=== PATIENT | female | born 1955 | race Caucasian/White ===

== ENCOUNTER 2017-11-23 10:15 | Emergency (ER) | payer MEDICAID, OTHER, SELFPAY ==
[2017-11-23 11:25] LABS: #Basophils 0.1 thou/uL (0.0-0.2); #Eosinphils 0.2 thou/uL (0.0-0.7); #Lymphocytes 1.1 thou/uL (1.20-3.40); #Monocytes 0.5 thou/uL (0.11-0.59); #Neutrophils 5.1 thou/uL (1.40-6.50); %Basophils 1.2 % (0.0-1.0); %Eosinophils 3.5 % (0.0-10.0); %Neutrophils 72.3 % (42.0-75.0); Hemoglobin 9.6 g/dL (12.0-16.0); Mean Corpuscular HGB CONC 30.3 g/dL (32.0-36.0); Mean Corpuscular Hemoglobin 32.9 pg (27.0-31.0); Mean Platelet Volume 6.8 fL (7.4-10.4); Platelet Count 204 thou/uL (130-400); RBC Distribution Width 15.1 % (11.5-14.5); Red Blood Cell (RBC) Count 2.92 mill/uL (4.20-5.40)
[2017-11-23 11:40] LABS: Anisocytosis SLIGHT = 6-15 cells (100X) (0-5/hpf); MDiff Complete? YES; Macrocytosis SLIGHT = 6-15 cells (100X) (0-5/hpf); PLT Morphology Comment Appears Adequate; Polychromasia SLIGHT = 2-3 cells (100X) (0-2/hpf)
--- NOTE | 2017-11-23 11:49 | RAD ---
FRONTAL RADIOGRPAH CHEST: DATE: 11/23/17. COMPARISON: None. HISTORY: Short of breath. FINDINGS: Cardiac silhouette appears enlarged. No pneumothorax is seen. No large-volume pleural effusion. Th ere is pulmonary vascular prominence. There is perihilar interstitial opacity, left greater than rig ht. IMPRESSION: Prominent cardiac silhouette with pulmonary vascular congestion and interstitial opacity. Findings s uggest interstitial edema. The possibility of an interstitial inflammatory process is not excluded. Recommend followup PA and lateral imaging of the chest following treatment. POS: [facility]
[2017-11-23 11:55] LABS: ALT (SGPT) 9 U/L (8-55); AST (SGOT) 17 U/L (5-34); Albumin 3.2 g/dL (3.5-5.0); Alkaline Phosphatase 123 U/L (40-150); BUN (Urea Nitrogen) 13 mg/dL (9.8-20.1); Bilirubin, Total 0.9 mg/dL (0.2-1.2); Calc. Creatinine Clearance 0 mL/min (70-130); Calcium 8.6 mg/dL (7.8-10.44); Estimated GFR-MDRD 73; Globulin 3.7 g/dL (2.4-3.5); Glucose 131 mg/dL (70-105); Protein, Total 6.9 g/dL (6.0-8.3)
[2017-11-23 12:05] LABS: Anion Gap 16 mmol/L (10-20); Chloride 87 mmol/L (98-107); Sodium 145 mmol/L (136-145)
[2017-11-23 12:09] LABS: Carbon Dioxide 46 mmol/L (22-29)
[2017-11-23] MEDS ORDERED: Furosemide 40 MG TAB ONE (12:23)
== END 2017-11-23 15:05 ==
LOC: ERS 10:15
DX: E66.01 Morbid (severe) obesity due to excess calories (principal); D64.9 Anemia, unspecified; E03.9 Hypothyroidism, unspecified; F41.9 Anxiety disorder, unspecified; F31.9 Bipolar disorder, unspecified; K21.9 Gastro-esophageal reflux disease without esophagitis; F03.90 Unspecified dementia, unspecified severity, without behavioral disturbance, psychotic disturbance, mood disturbance, and anxiety; I11.0 Hypertensive heart disease with heart failure; I50.9 Heart failure, unspecified; Z79.899 Other long term (current) drug therapy; Z79.1 Long term (current) use of non-steroidal anti-inflammatories (NSAID)
CPT/HCPCS: 36415; 71045; 80053; 83880; 85025; 94640; 94799; J7620

== ENCOUNTER 2018-03-07 05:53 | Inpatient (IN) | payer OTHER ==
[2018-03-07] MEDS ORDERED: fentaNYL Citrate/PF 2,000 MCG in Sodium Chloride 0.9% 60 ML IV SCH ×2 (06:25→09:54)
[2018-03-07 06:28] LABS: Actual Bicarbonate (HCO3a) 32.8 mEq/L (22-28); Analyzer IN Cardio ER; Base Excess (BEa) 6.2 mEq/L (-2.0 to +3.0); Calcium, Ionized 0.94 mmol/L (1.12-1.30); Carboxyhemoglobin (COHb) 0.8 gm% (0.0-3.0); Hemoglobin (Hb) 8.7 g/dL (12.0-16.0); Potassium - ABG Lab 5.78 mmol/L (3.70-5.30); pH, Arterial 7.36 (7.35-7.45)
[2018-03-07 06:30] LABS: Puncture Site RRA
[2018-03-07 06:55] LABS: Hemoglobin 8.4 g/dL (12.0-16.0); Mean Corpuscular HGB CONC 30.3 g/dL (32.0-36.0); Mean Corpuscular Hemoglobin 32.4 pg (27.0-31.0); RBC Distribution Width 16.2 % (11.5-14.5); Red Blood Cell (RBC) Count 2.59 mill/uL (4.20-5.40)
[2018-03-07] MEDS ORDERED: Piperacillin/Tazobactam 4.5 GM VIAL ONE (06:58)
[2018-03-07 07:01] LABS: ALT (SGPT) 11 U/L (8-55); AST (SGOT) 11 U/L (5-34); Alkaline Phosphatase 92 U/L (40-150); Anion Gap 23 mmol/L (10-20); BUN (Urea Nitrogen) 71 mg/dL (9.8-20.1); Bilirubin, Total 1.1 mg/dL (0.2-1.2); CK (CPK) 12 U/L (29-168); Calc. Creatinine Clearance 0 mL/min (70-130); Calcium 7.5 mg/dL (7.8-10.44); Carbon Dioxide 30 mmol/L (23-31); Chloride 87 mmol/L (98-107); Estimated GFR-MDRD 8; Lipase 4 U/L (8-78); Sodium 134 mmol/L (136-145)
[2018-03-07 07:03] LABS: Glucose 52 mg/dL (80-115)
[2018-03-07 07:09] LABS: CKMB 0.5 ng/mL (0-6.6); Troponin I 0.055 ng/mL (< 0.028)
[2018-03-07 07:32] LABS: Mean Platelet Volume 8.1 fL (7.4-10.4); Platelet Count 93 thou/uL (130-400)
[2018-03-07 07:33] LABS: Band 43 % (5-11); Blast 1 % (0-0); Eosinophils 4 % (0-10); Lymphocytes 15 % (21-51); MDiff Complete? YES; Macrocytosis SLIGHT = 6-15 cells (100X) (0-5/hpf); Metamyelocyte 14 % (0-0); Myelocyte 16 % (0-0); Neutrophil 6 % (42-75); Reflex for Review?? YES
[2018-03-07] MEDS ORDERED: Norepinephrine 8 MG/0.9% NS 250 ML ONE (08:20)
[2018-03-07] MEDS ORDERED: Dextrose 50% Abboject 50 ML SYRINGE ONE ×2 (08:35→11:16)
--- NOTE | 2018-03-07 08:43 | RAD ---
CHEST ONE VIEW: Comparison: 03-07-18 History: Central line placement. FINDINGS: Interval placement of a right sided subclavian central venous catheter with the distal tip projecting over the expected region of the superior vena cava. No pneumothorax. Stable lung parenchymal changes , cardiomegaly, endotracheal and nasogastric tubes. IMPRESSION: Right sided central venous catheter as above. No definite pneumothorax. POS: [facility]
--- NOTE | 2018-03-07 08:44 | RAD ---
ONE VIEW CHEST: History: Hypotension. Sepsis. FINDINGS: There is an endotracheal tube and nasogastric tube appropriately positioned. Heart is enlarged. There are diffuse interstitial and alveolar opacities. No pneumothorax. IMPRESSION: Congestive heart failure. Superimposed infiltrates cannot be excluded. POS: [facility]
[2018-03-07] MEDS ORDERED: Dextrose 5 % And 0.9 % NaCl 1,000 ML IV SCH (08:45)
[2018-03-07] MEDS ORDERED: Vancomycin HCl 0.5 GM in Sodium Chloride 0.9% 250 ML 250 ML IVPB SCH (09:32)
[2018-03-07] MEDS ORDERED: Acetaminophen 650 MG Suppository PR PRN (09:32)
[2018-03-07] MEDS ORDERED: Ventilator Sedation Protocol 1 EACH FS ONE (09:32)
[2018-03-07] MEDS ORDERED: Dextrose 5% in Water 1,000 ML IV PRN (09:32)
[2018-03-07] MEDS ORDERED: Dextrose 5% in Water 1,000 ML IV SCH (09:45)
[2018-03-07] MEDS ORDERED: Propofol 1,000 MG/100 ML VIAL IV PRN (09:54)
[2018-03-07] MEDS ORDERED: Lorazepam 2 MG/ML VIAL SLOW IVP PRN (09:54)
[2018-03-07] MEDS ORDERED: Propofol BOLUS 1,000 MG/100 ML VIAL IV PRN (09:54)
[2018-03-07] MEDS ORDERED: Fentanyl BOLUS 250 ML IVPB PRN (09:54)
[2018-03-07] MEDS: Dextrose 50% Abboject 50 ML SYRINGE SLOW IVP PRN ×2 (11:18→12:36)
[2018-03-07 11:30] VITALS: BMI 102.1
[2018-03-07] MEDS ORDERED: Vancomycin HCl 1 GM in Premix Bag 1 BAG IVPB SCH (11:30)
[2018-03-07 12:10] LABS: Lactic Acid 10.6 mmol/L (0.5-2.2)
[2018-03-07] MEDS ORDERED: Albumin 5% 250 ML ONE (12:54)
--- NOTE | 2018-03-07 12:56 | HP ---
REASON FOR ADMISSION: Acute respiratory failure with hypoxia and hypercapnia, life threatening obesity, sepsis, renal failure, hyperkalemia, congestive heart failure exacerbation, demand ischemia, hypoglycemia. HISTORY OF PRESENTING ILLNESS: Please note the majority of this history is obtained by my talking to ER physician, Dr. Bonner, ER records, and fdc records from [facility] as the patient is intubated and sedated. The patient apparently was sent from fdc for hypoxia with low blood pressures. She was initially saturating 81% on room air when EMS arrived. She was placed on CPAP and the saturations promptly came up to 97% and was brought to the emergency room. She also had fingerstick glucose in the 30s and was given multiple D50s prior to bringing her to the ER. On arrival in ER, the patient had to be intubated to protect airway. She also became severely encephalopathic prior to intubation. Currently, has a #7 ET tube orally intubated. She is morbidly obese and weighs nearly 376 kilos. Initial workup in the ER revealed multiple organ failure with hyperkalemia, possible sepsis. PAST MEDICAL AND SURGICAL HISTORY: Life threatening morbid obesity, hypothyroidism, likely obesity hypoventilation syndrome, bipolar disorder, anxiety disorder, history of CHF, prior history of pneumonia per fdc records, history of unspecified dementia with behavioral disturbance per fdc records and chronic anemia. CURRENT MEDICATIONS: Per nursing records, patient is on Desyrel 50 mg daily, Synthroid 150 mcg daily, Zaroxolyn 5 mg p.o. daily, Abilify 10 mg at bedtime, multivitamin 1 tab once daily, K-Dur 20 mEq p.o. daily, ranitidine 150 mg twice a day, torsemide 100 mg twice daily, vitamin D3 2000 units at bedtime, Cymbalta 90 mg at bedtime and Colace 100 mg daily p.r.n. ALLERGIES: CIPROFLOXACIN and LEVAQUIN. PERSONAL HISTORY: Patient is a fdc resident at [facility]. It is unclear if she smokes. FAMILY HISTORY: Cannot be obtained as patient is currently intubated. CODE STATUS: I have discussed patient's code status with her brother who is next of kin per [facility] and fdc records and Scar does mention that he has been making decisions for her for the last 2 years now. The number to reach him is [phone]. He wants her to be DO NOT RESUSCITATE. The patient apparently has a son and Mr. Abbott will try to get his phone number and get in touch with him to come and see her. At present, he does not have a direct phone number to reach him. The son's name is Antonio Hill. Again, I do not have a number nor does the patient's brother have his number. REVIEW OF SYSTEMS: Cannot be obtained as the patient is intubated and is encephalopathic. PHYSICAL EXAMINATION: GENERAL: Patient is a 63-year-old morbidly obese female who is currently intubated. VITAL SIGNS: Blood pressure 90/60, pulse 70 per minute, respiratory rate 16 per minute, temperature 100.1 degrees, saturating 97% on 50% FiO2 on the ventilator, tidal volume is 500, PEEP is 5. The patient is orally intubated with ET tube #7. NECK: Supple. No obvious elevation in JVD. Again, it is very hard to elicit the same with no anatomic markings with morbid obesity. EYES: Pupils are 3 mm and sluggishly reacting to light. ORAL CAVITY: No obvious exudates seen. Has an ET tube and NG tube. CARDIOVASCULAR SYSTEM: S1, S2 heard. Regular rhythm. RESPIRATORY SYSTEM: Air entry 1+ bilaterally, rales plus bilateral, rhonchi plus no wheezes. ABDOMEN: Obese. No obvious masses felt. Bowel sounds are heard. EXTREMITIES: The patient likely has some chronic lymphedema. The patient has macerations on the skin folds at multiple levels in both her lower abdomen and thigh areas. VASCULAR SYSTEM: Peripheral pulses are 1+ in the upper extremities, barely palpable in the lower extremities. No ischemic gangrene. CENTRAL NERVOUS SYSTEM: No gross focal signs seen. NEUROLOGIC: Exam is difficult as the patient is intubated and is sedated at present. PSYCHIATRIC SYSTEM: Cannot be ascertained as the patient is intubated and encephalopathic at present. IMAGING DATA AND LABORATORY DATA: Chest x-ray done shows right-sided central venous catheter, signs of pulmonary vascular congestion, questionable infiltrates. White count of 3, hemoglobin and hematocrit 8 and 27, platelet count 93, MCV is 107 with 6% neutrophils, 43% bands, 15% neutrophils, 14% metamyelocytes and 16% myelocytes. There is 1% blasts with ABG done on arrival shows a pH of 7.36, pCO2 60, pO2 93. The patient was on ventilator with 50% FiO2 for the blood gas. Potassium 6.0. Sodium 134, chloride 87, serum bicarbonate 30, BUN 71, creatinine 5.3, serum glucose 52, lactic acid 8.9. Liver enzymes within normal limits. Troponin I 0.05. BNP is 1229, albumin is 2.0. Influenza A and B antigens are negative. EKG done show normal sinus rhythm at 65 beats per minute. There is extremely low voltage EKG, likely due to body habitus. CLINICAL IMPRESSION AND PLAN: The patient will be admitted to ICU for acute respiratory failure with hypoxia, life threatening obesity, sepsis, acute renal failure, hyperkalemia, demand ischemia, CHF exacerbation and likely very poor functional status. She will be on cefepime and vancomycin based on renal dosing. A total of 4 liters of normal saline has been given in the ER. One amp of dextrose has been given in the ER. She will also be on steroids, IV, DuoNebs. ER physician Dr. Bonner has spoken to Dr. Melgar already about the patient. I have discussed her findings with Dr. Hines for Nephrology. We will await pathology smear review in view of immature cells including metamyelocytes and myelocytes seen in the CBC. Her overall prognosis is very poor and I have discussed this with her brother, Mr. Abbott. He is trying to get hold of her son who has not been in touch with her for quite some time now per Scar. Mr. Abbott does not want resuscitation done if her heart quits, but to continue current measures that we are doing for now. He will let us know if withdrawal of care needs to be done after discussing with his other siblings and her son as we locate him. SLY
[2018-03-07] MEDS: Cefepime 1 GM in Sodium Chloride 0.9% 100 ML IVPB SCH (13:11)
[2018-03-07] MEDS ORDERED: Dextrose 10% in Water 1,000 ML IV SCH (13:30)
[2018-03-07] MEDS: Vasopressin 40 UNIT, Admixture Fee 1 EACH in Sodium Chloride 0.9% 100 ML IV SCH (13:42)
[2018-03-07 14:38] LABS: Anion Gap 22 mmol/L (10-20); BUN (Urea Nitrogen) 66 mg/dL (9.8-20.1); Calc. Creatinine Clearance 51 mL/min (70-130); Calcium 7.2 mg/dL (7.8-10.44); Carbon Dioxide 28 mmol/L (23-31); Chloride 91 mmol/L (98-107); Estimated GFR-MDRD 9; Potassium 5.6 mmol/L (3.5-5.1); Sodium 135 mmol/L (136-145)
[2018-03-07 14:47] LABS: Glucose 52 mg/dL (80-115)
[2018-03-07] MEDS ORDERED: STERILE WATER IV SCH ×2 (16:45→17:15)
[2018-03-07] MEDS ORDERED: DEXTROSE 70% IV SCH ×2 (16:45→17:15)
[2018-03-07] MEDS ORDERED: WATER IV SCH ×2 (16:45→17:15)
[2018-03-07] MEDS ORDERED: Sterile Water Injection 714 ML in Dextrose 70% in Water 286 ML IV SCH (17:15)
[2018-03-07] MEDS: Heparin 5,000 UNITS/ML VIAL SC SCH ×2 (17:44→21:19)
[2018-03-07] MEDS: Hydrocortisone Sod Succ/PF 100 mg/2 ml Vial IVP SCH ×2 (17:46→23:43)
--- NOTE | 2018-03-07 17:59 | CON ---
DATE OF CONSULTATION: 03/07/2018 HISTORY OF PRESENT ILLNESS: Edda Hill is a 63-year-old morbidly obese female from [employer] [facility]. She apparently weighs over 362 kilograms, presented with difficulty breathing. Initial x-ray showed bilateral pneumonia, left greater than right. She was intubated by the ER doctor and transferred her e for ongoing care. According to her brother who is in [place] who has the power of ip technology transactions attorney has made her DNR. She has no quality of life. She has been in the custodial now for almost 8 years, but after that she was ma rginally living at home where she could barely walk. She was involved in an accident that precipitat ed worsening of her overall medical problem and was transferred there. She is unable to walk even in the custodial. Apparently did get her food at the bedside. She is presently intubated on the vent. PAST MEDICAL HISTORY: Pertinent for previous medical records, pertinent for apparently congestive he art failure; hypothyroidism; reflux; hypertension; dementia; obesity, morbid; apparently bipolar diso rder; depression. PREVIOUS SURGERIES: At this stage, unknown. SOCIAL HISTORY: Tobacco, none. Alcohol, none. REVIEW OF SYSTEMS: Unremarkable. Apparently, she has a son as per the brother who lives in [place], v thang unlikely that he is going to be coming over here. ALLERGIES: She has allergies to LEVAQUIN. PHYSICAL EXAMINATION: VITAL SIGNS: Her blood pressure is 60/80, pulse 83, sats are 95%, respiration 17. GENERAL: Unresponsive. EXTREMITIES: She is morbidly obese with extensive stasis blackish discoloration of both lower extrem ities, 4+ pitting edema. CHEST: Decreased breath sounds, no wheezing. CARDIAC: Normal S1, S2, no gallops. ABDOMEN: Massive. LABORATORY DATA: White count of 3000, H&H is 8 and 27, platelet count is 93,000, low. PO2 is 93, pC O2 of 60%, 36 on a rate of 16, 50%, 500 tidal volume. BUN and creatinine are elevated at 71 and 5.3. She had lab done in November, which shows a normal renal function. X-ray shows bilateral pulmonary infiltrates. IMPRESSION: 1. Acute on chronic respiratory failure. 2. Morbid obesity. 3. Aspiration pneumonia. 4. Renal failure, probably prerenal versus acute tubular necrosis. 5. Severe deconditioning. PLAN: As per her brother, she is a DNR who is her power of ip technology transactions attorney. He is in [place]. She was star tyra on broad-spectrum antibiotics including neb treatments, steroids. We will continue IV fluids. P enmanuelsis is grave. This is a 45-minute critical care time.
[2018-03-07] MEDS: DOPamine 400 MG/D5W 250 ML 250 ML IVPB SCH ×2 (18:52→22:14)
--- NOTE | 2018-03-08 00:24 | CON ---
DATE OF CONSULTATION: 03/07/2018 NEPHROLOGY CONSULT NOTE CONSULTING PHYSICIAN: Dr. Suarez. REASON FOR CONSULTATION: Acute kidney injury. REASON FOR ADMISSION: Hypoxemia. HISTORY OF PRESENT ILLNES: This is a 63-year-old female with history of morbid obesity, hypothyroidi sm, obese, anxiety, dementia, came to the hospital with not feeling well. Patient is intubated, not able to give history. No family members available. Nephrology is consulted for acute kidney injury. She was found to have a potassium of 6.0 and creatinine 5.3. She is also being treated for anemia and leukopenia. PAST MEDICAL HISTORY: Positive for morbid obesity, hypothyroidism, bipolar disorder, anxiety, CHF, p neumonia, anemia. PAST SURGICAL HISTORY: Not known. HOME MEDICATIONS: Desyrel, Synthroid, Zaroxolyn, Abilify, multivitamin, K-Dur, ranitidine, torsemide , vitamin D3, Cymbalta, Colace. ALLERGIES: CIPROFLOXACIN, LEVAQUIN. SOCIAL HISTORY: No smoking, alcohol, or illicit drug abuse. FAMILY HISTORY: No history of kidney disease. REVIEW OF SYSTEMS: Could not be obtained as intubated. PHYSICAL EXAMINATION: GENERAL: Morbidly obese female seen in ICU, intubated. VITAL SIGNS: Temperature 98.1, pulse 82, respiratory rate 16, blood pressure . HEENT: Intubated. HEART: S1, S2 heard. RESPIRATORY: Clear. GASTROINTESTINAL: Abdomen is obese, soft. MUSCULOSKELETAL: 1+ edema. DERMATOLOGIC: No skin rash. NEUROLOGICAL: Intubated. LABORATORY DATA: Hemoglobin is 8.4. Potassium is 5.6, BUN is 66, creatinine 5.08. ASSESSMENT AND PLAN: 1. Acute kidney injury. Continue supportive care. No acute indication for dialysis, poor candidate for dialysis. 2. Hyperkalemia, better, most likely from acidosis. 3. Hyponatremia. 4. Metabolic acidosis. 5. Anemia. 6. Acute hypoxic respiratory failure. 7. Possible septic shock. 8. Prognosis are guarded. No acute indication for dialysis. Patient is at high risk for complicati ons. Thank you for the consult. We will follow.
[2018-03-08] MEDS: DOPamine 400 MG/D5W 250 ML 250 ML IVPB SCH ×12 (00:41→20:18)
[2018-03-08] MEDS: Norepinephrine 8 MG/0.9% NS 250 ML IVPB SCH ×3 (01:50→17:48)
[2018-03-08] MEDS: Vasopressin 40 UNIT, Admixture Fee 1 EACH in Sodium Chloride 0.9% 100 ML IV SCH ×3 (03:00→21:45)
[2018-03-08] MEDS: Hydrocortisone Sod Succ/PF 100 mg/2 ml Vial IVP SCH ×3 (05:50→17:08)
[2018-03-08 06:03] LABS: Albumin 2.3 g/dL (3.4-4.8); Anion Gap 28 mmol/L (10-20); BUN (Urea Nitrogen) 67 mg/dL (9.8-20.1); BUN/Creatinine Ratio 12.74; Calc. Creatinine Clearance 49 mL/min (70-130); Calcium 7.9 mg/dL (7.8-10.44); Carbon Dioxide 19 mmol/L (23-31); Chloride 90 mmol/L (98-107); Estimated GFR-MDRD 8; Glucose 77 mg/dL (80-115); Phosphorus 6.3 mg/dL (2.3-4.7); Potassium 6.2 mmol/L (3.5-5.1); Sodium 131 mmol/L (136-145)
[2018-03-08 06:16] LABS: Band 35 % (5-11); Eosinophils 2 % (0-10); Lymphocytes 8 % (21-51); MDiff Complete? YES; Mean Corpuscular HGB CONC 28.1 g/dL (32.0-36.0); Mean Corpuscular Hemoglobin 31.3 pg (27.0-31.0); Mean Platelet Volume 9.1 fL (7.4-10.4); Metamyelocyte 8 % (0-0); Monocytes 17 % (0-10); Myelocyte 1 % (0-0); Neutrophil 29 % (42-75); PLT Morphology Comment Appears Decreased; Platelet Count 69 thou/uL (130-400); RBC Distribution Width 16.4 % (11.5-14.5); Red Blood Cell (RBC) Count 2.86 mill/uL (4.20-5.40); White Blood Cell (WBC) Count 9.4 thou/uL (4.8-10.8)
[2018-03-08] MEDS ORDERED: Vancomycin HCl 1 GM in Premix Bag 1 BAG IVPB SCH ×2 (08:00→12:00)
--- NOTE | 2018-03-08 08:54 | RAD ---
CHEST 1 VIEW: COMPARISON: 03/07/2018. FINDINGS: Endotracheal and nasogastric tube are redemonstrated. Stable right-sided central venous catheter. P ersistent cardiomegaly, pulmonary vascular congestion, and interstitial/alveolar opacities/edema. Th ere is interval slightly increased right-sided pleural effusion. No pneumothorax. IMPRESSION: Congestive heart failure. POS: [facility]
--- NOTE | 2018-03-08 09:27 | PRG ---
DATE OF SERVICE: 03/08/2018 This is a morbidly obese female, this morning to my surprise is awake and responsive. She is complai josé of pain. She is on 3 pressors, dopamine, vasopressin and Levophed. In spite of this, we are un able to get a blood pressure 81 as possibly because of morbid obesity, not getting adequate blood pre ssure. She nods to pain. PHYSICAL EXAMINATION: VITAL SIGNS: Otherwise, oxygen saturation to 95-98%, pulse is 72. She has had pretty much no urine output. Her chest x-ray shows bilateral infiltrates. CHEST: Chest otherwise examination reveals decreased breath sounds, minimal rhonchi. CARDIAC: Normal S1, S2, no gallops. ABDOMEN: No way to assess her because of morbid obesity. EXTREMITIES: Extremities show extensive what appears to be, in my mind, maybe necrotizing soft tissu e infection with extensive oozing of clear fluid from her legs. NEURO: Neurologically, she opens her eyes, nodded and answers questions appropriately. LABORATORY: Her blood sugar is now 89, creatinine 5.26. BUN is 67. Cortisol level was 22. Culture s so far; blood growing gram negative hiren. IMPRESSION: 1. Gram-negative sepsis, probably urinary tract infection versus skin infection. 2. Respiratory failure, possibly pneumonia. 3. Morbid obesity. 4. Renal failure. 5. Hypoglycemia. PLAN: She is on D20 at 50 an hour. She is on broad-spectrum antibiotics including Maxipime and vanc omycin and steroids. She is a DNR. Continue supportive care. I am going to add another gram-negative antibiotic to her p resent coverage until we get the sensitivities back. Prognosis is grave. One-half hour critical care time.
[2018-03-08] MEDS: Heparin 5,000 UNITS/ML VIAL SC SCH ×3 (09:57→20:18)
[2018-03-08] MEDS: Cefepime 1 GM in Sodium Chloride 0.9% 100 ML IVPB SCH (10:18)
[2018-03-08 12:35] LABS: Vancomycin, Random 35.4 ug/mL (See Comment)
--- NOTE | 2018-03-08 14:13 | PDOC.PN ---
- Subjective Encounter Start Date: 03/08/18 Encounter Start Time: 11:55 Subjective: is awake, not fully oriented -: is moving her upper extremities -: on multiple pressors plus D20 drip - Objective Resuscitation Status: Resuscitation Status DNR:Do Not Resuscitate MAR Reviewed: Yes Vital Signs & Weight: Vital Signs (12 hours) Temp Pulse Resp BP Pulse Ox 03/08/18 13:00 97.9 F 03/08/18 12:45 147 H 03/08/18 12:00 23 H 03/08/18 11:00 25 H 03/08/18 10:00 21 H 03/08/18 08:00 19 90 L 03/08/18 07:31 72 03/08/18 07:00 97.7 F 03/08/18 06:00 16 03/08/18 04:00 97.8 F 16 03/08/18 02:19 97 112/90 Weight Admit Weight 613 lb Weight 613 lb 12.27 oz Most Recent Monitor Data Heart Rate from ECG 148 NIBP 67/48 NIBP BP-Mean 53 Respiration from ECG 9 SpO2 70 I&O: 03/07/18 03/08/18 03/09/18 06:59 06:59 06:59 Intake Total 4481.4 Output Total 10 10 Balance 4471.4 -10 Result Diagrams: 03/08/18 05:40 03/08/18 05:40 Additional Labs: Accuchecks 03/08/18 03/08/18 03/08/18 13:09 09:00 03:54 POC Glucose 73 70 89 03/07/18 03/07/18 03/07/18 23:50 20:27 18:07 POC Glucose 78 77 59 L* 03/07/18 03/07/18 03/07/18 16:22 14:09 13:41 POC Glucose 63 L 56 L* 66 L 03/07/18 03/07/18 03/07/18 12:32 11:37 11:15 POC Glucose 53 L* 79 44 L* Phys Exam - Physical Examination HEENT: PERRLA, moist MMs Neck: no JVD, supple Respiratory: no wheezing distant breath sounds Cardiovascular: RRR, no significant murmur Gastrointestinal: soft, non-tender, positive bowel sounds Musculoskeletal: edema present has maceration of skin folds with some ulcerations Neurological: non-focal Dx/Plan (1) Acute respiratory failure with hypoxia Code(s): J96.01 - ACUTE RESPIRATORY FAILURE WITH HYPOXIA Status: Acute (2) Morbid obesity with BMI of 70 and over, adult Code(s): E66.01 - MORBID (SEVERE) OBESITY DUE TO EXCESS CALORIES; Z68.45 - BODY MASS INDEX (BMI) 70 OR GREATER, ADULT Status: Acute (3) Sepsis Code(s): A41.9 - SEPSIS, UNSPECIFIED ORGANISM Status: Acute (4) Bacteremia Code(s): R78.81 - BACTEREMIA Status: Acute Comment: gm-ve (5) Hypoglycemia Code(s): E16.2 - HYPOGLYCEMIA, UNSPECIFIED Status: Acute (6) Septic shock Code(s): A41.9 - SEPSIS, UNSPECIFIED ORGANISM; R65.21 - SEVERE SEPSIS WITH SEPTIC SHOCK Status: Acute (7) ARF (acute renal failure) Status: Acute Qualifiers: Acute renal failure type: unspecified Qualified Code(s): N17.9 - Acute kidney failure, unspecified (8) Hyperkalemia Code(s): E87.5 - HYPERKALEMIA Status: Acute (9) Acute exacerbation of CHF (congestive heart failure) Code(s): I50.9 - HEART FAILURE, UNSPECIFIED Status: Acute Qualifiers: Heart failure type: unspecified Qualified Code(s): I50.9 - Heart failure, unspecified - Plan is on multiple pressors, D20 drip -: very poor prognosis, family is aware -: on cefepime and vanc -: await full sensitivities, echo for lv function -: not a candidate for any procedures except bedside * . Review of Systems - Medications/Allergies Allergies/Adverse Reactions: Allergies Allergy/AdvReac Type Severity Reaction Status Date / Time ciprofloxacin [From Cipro] Allergy Verified 03/07/18 06:24 levofloxacin [From Levaquin] Allergy Verified 03/07/18 06:24 Medications: Current Medications Acetaminophen (Tylenol) 650 mg OH Q4H PRN PRN Reason: Headache/Fever/Mild Pain (1-3) Albuterol/Ipratropium (Duoneb) 3 ml NEB [id number] [facility] Last Admin: 03/08/18 12:44 Dose: 3 ml Dextrose/Water (Dextrose 50%) 25 gm SLOW IVP PRN PRN PRN Reason: Hypoglycemia Last Admin: 03/07/18 12:36 Dose: 25 gm Glucagon (Glucagon) 1 mg IVP PRN PRN PRN Reason: Hypoglycemia Last Admin: 03/07/18 18:54 Dose: 1 mg Heparin Sodium (Porcine) (Heparin) 5,000 units SC TID [facility] Last Admin: 03/08/18 09:57 Dose: 5,000 units Hydrocortisone Sodium Succinate (Solu-Cortef) 100 mg IVP Q6HR [facility] Last Admin: 03/08/18 12:20 Dose: 100 mg Cefepime HCl 1 gm/ Sodium (Chloride) 100 mls @ 200 mls/hr IVPB Q24H [facility] Last Admin: 03/08/18 10:18 Dose: 100 mls Dextrose/Water (D5w) 1,000 mls @ 0 mls/hr IV .Q0M PRN PRN Reason: Hypoglycemia Norepinephrine Bitartrate (Levophed) 250 mls @ 0 mls/hr IVPB INF [facility]; Protocol Last Admin: 03/08/18 10:26 Dose: 250 mls Fentanyl Citrate 2,000 mcg/ (Sodium Chloride) 100 mls @ 0 mls/hr IV INF [facility]; Protocol Stop: 04/06/18 09:54 Fentanyl Citrate (Fentanyl Bolus) 250 mls @ 0 mls/hr IVPB PRN PRN PRN Reason: Breakthrough pain/agitation Stop: 04/06/18 09:54 Vasopressin 40 unit/Miscellaneous Medication 1 each/ Sodium Chloride 102 mls @ 6 mls/hr IV INF [facility] Last Admin: 03/08/18 03:00 Dose: 102 mls Sterile Water 714 ml/ Dextrose (/Water) 1,000 mls @ 50 mls/hr IV INF [facility] Last Admin: 03/07/18 17:39 Dose: 1,000 mls Dopamine HCl/Dextrose (Dopamine/D5w) 250 mls @ 0 mls/hr IVPB INF [facility]; Protocol Last Admin: 03/08/18 14:01 Dose: 250 mls Vancomycin HCl 1 gm/ Device 200 mls @ 133.333 mls/hr IVPB .PENDING LEVELS [facility] Lorazepam (Ativan) 2 mg SLOW IVP Q1H PRN PRN Reason: Breakthrough agitation Stop: 04/06/18 09:54 Miscellaneous Medication (Pharmacy To Dose) 0 each IVPB PRN PRN PRN Reason: VANCOMYCIN Propofol (Diprivan) 1,000 mg IV INF PRN; Protocol PRN Reason: TO ACHIEVE GOAL RASS Stop: 04/06/18 09:54 Propofol (Diprivan Bolus) 20 mg IV Q5MIN PRN PRN Reason: BREAKTHROUGH AGITATION Stop: 04/06/18 09:54 Sodium Chloride (Flush - Normal Saline) 10 ml IVF Q12HR [facility] Last Admin: 03/08/18 09:56 Dose: 10 ml Sodium Chloride (Flush - Normal Saline) 10 ml IVF PRN PRN PRN Reason: Saline Flush
--- NOTE | 2018-03-08 14:24 | PQF ---
CLINICAL DOCUMENTATION IMPROVEMENT CLARIFICATION FORM: ICD-10 Updated PLEASE DO AN ADDENDUM TO THE PROGRESS NOTE WITH ANY DOCUMENTATION UPDATES OR ADDITIONS AND CARRY THROUGH TO DC SUMMARY. THANK YOU. DATE: ATTN: DR. BISHOP Please exercise your independent, professional judgment in responding to the clarification form. Clinical indicators are provided on the bottom of this form for your review Please check appropriate box(s): HEART FAILURE: A. TYPE: [ ] Systolic / HFrEF [ ] Diastolic / HFpEF [ ] Combined Systolic / Diastolic B. ACUITY [ ] Acute [ ] Acute on Chronic [ ] Chronic [ ] Other diagnosis [ x ] Unable to determine In addition, please specify: Present on Admission (POA): [ ] Yes [ ] No [ ] Unable to determine For continuity of documentation, please document condition throughout progress notes and discharge summary. Thank You. CLINICAL INDICATORS - SIGNS / SYMPTOMS / LABS H&P 03/07: "CHF EXACERBATION" BNP 1229.8 CHEST XRAY 03/07: "CONGESTIVE HEART FAILURE. SUPERIMPOSED INFILTRATES CANNOT BE EXCLUDED." RISKS: H/O CHF H/O HTN TREATMENT: CRITICAL CARE MONITORING CHEST XRAY INTUBATION WITH MECHANICAL VENTILATION (This form is maintained as a part of the permanent medical record) 2014 [employer]. All Rights Reserved [email or web address] Office: [phone] [facility] HOSPITALShellie
[2018-03-08] MEDS ORDERED: Morphine 10 MG/ML VIAL SLOW IVP PRN (16:27)
--- NOTE | 2018-03-08 18:07 | PRG ---
DATE OF SERVICE: 03/08/2018 SUBJECTIVE: Patient was seen and examined at bedside and overnight events noted. Patient denies any shortness of breath or chest pain or palpitation. No history of nausea or vomiting or diarrhea or f ever or chills or cramps. The patient was seen in ICU and remains intubated and not responsive. The patient's heart rate is in 150s and 170s and not responsive. Not making much urine. OBJECTIVE: GENERAL APPEARANCE: This is a morbidly obese female seen in ICU intubated. VITAL SIGNS: Temperature 97.8, pulse 77, respiratory rate , blood pressure 97/52. HEENT: Intubated. NECK: Supple. CARDIOVASCULAR: S1, S2 heard. Rate and rhythm regular. RESPIRATORY: Clear to auscultation. GASTROINTESTINAL: Abdomen is soft. MUSCULOSKELETAL: No tenderness. 2+ edema. DERMATOLOGIC: No skin rash. NEUROLOGIC: Intubated. PSYCHIATRIC: Mood and affect normal. LABORATORY DATA: Potassium 6.2, BUN 67, creatinine is 5.2. ASSESSMENT AND PLAN: 1. Acute kidney injury, getting worse with oliguria. Patient is high risk for dialysis given the ta chycardia and fragile condition. 2. Hyperkalemia, getting worse. 3. Metabolic acidosis . Prognosis extremely guarded. Patient high risk for complications duri ng dialysis. I would not recommend that at this point. Family is aware and will follow.
[2018-03-08 22:00] VITALS: BP 171/32
[2018-03-09] MEDS: Hydrocortisone Sod Succ/PF 100 mg/2 ml Vial IVP SCH (00:14)
[2018-03-09] MEDS: DOPamine 400 MG/D5W 250 ML 250 ML IVPB SCH (00:15)
[2018-03-09 00:37] VITALS: TEMP 98.6
[2018-03-09] MEDS ORDERED: Vancomycin HCl 1 GM in Premix Bag 1 BAG IVPB SCH (01:00)
--- NOTE | 2018-03-09 03:41 | PDOC.EVN ---
Event Note - Event Note Event Note: Nurse made me aware that Patient has passed. Patient Time of 3:15am.
--- NOTE | 2018-03-10 22:48 | DIS ---
SUMMARY DATE OF : 03/09/2018 at 3:15 a.m. PRIMARY CAUSE OF : Acute respiratory failure with hypoxia on ventilator from last 3 days, febi c shock, gram negative bacteremia, morbid obesity with hypoventilation syndrome, weighing around 367 kilos, persistent hypoglycemia, acute renal failure; all of this from the last 3 days. BRIEF COURSE DURING HOSPITALIZATION: Patient initially was [facility] from [facility] for altered mental state and hypoxia with low blood pressures. Patient initially was on BiPAP and on arrival to the ER , she was intubated for airway. She was given nearly 4 L of normal saline on arrival in the ER and w as on IV fluids all through her stay. Despite this, patient was hypotensive and was on 3 pressors. She was also hypoglycemic and initially placed on D5, then D10 and later had to be switched to D20 de spite, which her sugars were running in the 50s-60s. Her overall prognosis was poor due to severe mo rbid obesity with the patient weighing 613 pounds. She was a do not resuscitate after talking to her brother, Mr. Scar Coulter who has been making decisions for her from last 2 years. The patient pr ogressively got worse over the course of her stay here. She was on broad spectrum IV antibiotics. H er blood cultures grew 2/2 gram-negative bacteria later identified as Achromobacter denitrificans. T he identification of this bacteria happened after her . She was on Levaquin and cefepime all th rough her stay. The report obtained posthumously was also sensitive to Levaquin and ceftazidime, but resistant to ceftriaxone and ciprofloxacin. The patient finally breathed her last around 3:15 a.m. on 03/09/2018 after she went into asystole. Her body will be released to family members per hospital protocol.
== END 2018-03-09 03:15 | disposition expired | DRG 871 ==
LOC: ERS 05:53 → CCU 09:13
PROVIDERS: ADMIT Internal Medicine; ATTEND Internal Medicine
PROC: 5A1945Z Respiratory Ventilation, 24-96 Consecutive Hours (ICD-10-PCS; principal; 2018-03-07)
PROC: 0BH17EZ Insertion of Endotracheal Airway into Trachea, Via Natural or Artificial Opening (ICD-10-PCS; 2018-03-07)
PROC: 02HV33Z Insertion of Infusion Device into Superior Vena Cava, Percutaneous Approach (ICD-10-PCS; 2018-03-07)
DX: A41.9 Sepsis, unspecified organism (principal); J96.02 Acute respiratory failure with hypercapnia; J96.01 Acute respiratory failure with hypoxia; J69.0 Pneumonitis due to inhalation of food and vomit; N17.9 Acute kidney failure, unspecified; E66.2 Morbid (severe) obesity with alveolar hypoventilation; Z68.45 Body mass index [BMI] 70 or greater, adult; I24.8 Other forms of acute ischemic heart disease; E87.2 Acidosis; F03.91 Unspecified dementia, unspecified severity, with behavioral disturbance; E87.1 Hypo-osmolality and hyponatremia; E87.5 Hyperkalemia; I11.0 Hypertensive heart disease with heart failure; I50.9 Heart failure, unspecified; E16.2 Hypoglycemia, unspecified; E03.9 Hypothyroidism, unspecified; Z66 Do not resuscitate; F31.9 Bipolar disorder, unspecified; F41.9 Anxiety disorder, unspecified; D64.9 Anemia, unspecified; Z88.1 Allergy status to other antibiotic agents
CPT/HCPCS: 31500; 36415; 36416; 36556; 71045; 80053; 80069; 80202; 82533; 82550; 82553; 82805; 83605; 83690; 83880; 84436; 84484; 85025; 85060; 87040; 87070; 87077; 87149; 87186; 87205; 87804; 93005; 93306; 94002; 94003; 94640; 96365; 96366; 96368; 96375; A4216; A4217; J0692; J1265; J1610; J1644; J1720; J2270; J2543; J2920; J3010; J3370; J7050; J7620; P9045